=== PATIENT | male | born 1995 | race Caucasian/White ===

== ENCOUNTER 2019-12-30 05:54 | Emergency (ER) | payer SELFPAY ==
[2019-12-30] MEDS ORDERED: TETRACAINE HCL 0.5% OPH SOLN 0.6 ML DROPERETTE OU ONE (06:33)
[2019-12-30 06:34] VITALS: BP 135/72
--- NOTE | 2019-12-30 06:41 | ER Document Report ---
ED General - General Chief Complaint: Abscess Stated Complaint: EYE INJURY Time Seen by Provider: 12/30/19 06:33 Primary Care Provider: LALY ROBBINS [Primary Care Provider] - Follow up as needed Notes: 24-year male presents with pain and swelling in his left upper eyelid for about 5 days, is already on amoxicillin steroids and Bactrim and it has come down some and the redness is resolved but he still having the swelling. No drainage at times. He says his left eye feels slightly blurry, only in the last 1 day. No trauma. Pediatric injury with a fishhook but is been fine since then. TRAVEL OUTSIDE OF THE [place] IN LAST 30 DAYS: No - Related Data Home Medications: bactrim ds. amoxicillin. steroid Past Medical History - Social History Smoking Status: Never Smoker Family History: None Patient has suicidal ideation: No Patient has homicidal ideation: No Review of Systems - Review of Systems Notes: REVIEW OF SYSTEMS GEN: Denies fever, chills, weight loss ENT: Denies sore throat, nasal discharge, ear pain EYES: Eyelid swelling CV: Denies chest pain, palpitations, edema RESP: Denies cough, shortness of breath, wheezing GI: Denies abdominal pain, nausea, vomiting, diarrhea MSK: Denies joint pain/swelling, edema, SKIN: Denies rash, skin lesions LYMPH: Denies swollen glands/lymph nodes NEURO: Denies headache, focal weakness or numbness, dizziness PSYCH: Denies depression, suicidal or homicidal ideation PHYSICAL EXAMINATION General: No acute distress, well-nourished Head: Atraumatic, normocephalic ENT: Mouth normal, oropharynx moist, lips normal Eyes: Conjunctiva normal, pupils equal, lids normal. Tender fluctuance left upper eyelid, not near the lacrimal duct and around the orbital rim Neck: No JVD, supple, no guarding Resp: No resp distress, equal chest rise GI: Nondistended, no guarding Back: No midline or CVA tenderness Ext: No deformities, no edema Skin: Well-perfused, no rash Neuro: Awake, alert. Face symmetric. Physical Exam - Vital signs Vitals: Temp Pulse Resp BP Pulse Ox 97.9 F 57 L 18 135/72 H 98 12/30/19 06:33 12/30/19 06:33 12/30/19 06:33 12/30/19 06:33 12/30/19 06:33 Course - Re-evaluation Re-evalutation: 12/30/19 06:51 Small eyelid abscess. No signs of toxicity, ocular involvement pre-or post septal cellulitis intracranial involvement Needle aspirated Continue antibiotics Follow-up primary care I have discussed with the patient there likely diagnosis, aftercare plan, follow-up plans and my usual and customary return precautions. They verbalized understanding of this. - Vital Signs Vital signs: Temp Pulse Resp BP Pulse Ox 97.9 F 57 L 18 135/72 H 98 12/30/19 06:33 12/30/19 06:33 12/30/19 06:33 12/30/19 06:33 12/30/19 06:33 Procedures - Incision and Drainage Left Upper Face Anesthetic type: Other - Topical skin refrigerant Blade size: Other - 18-gauge needle I&D procedure: Betadine prep applied Incision Method: Incision made with needle Amount/type of drainage: 2 cc blood pus Discharge - Discharge Clinical Impression: Abscess of eyelid left eye, unspecified eyelid Qualifiers: Eyelid: upper Qualified Code(s): H00.034 - Abscess of left upper eyelid Condition: Good Disposition: HOME, SELF-CARE Instructions: Abscess ([facility]), Trimethoprim-Sulfa ([facility]) Additional Instructions: Continue antibiotics and warm compress 3 times per day. Referrals: LOCALMD,NO [Primary Care Provider] - Follow up as needed
== END 2019-12-30 07:39 | disposition home or self-care (01) ==
LOC: ER 05:54
DX: H00.034 Abscess of left upper eyelid (principal); H57.12 Ocular pain, left eye